=== PATIENT | female | born 1945 | race Caucasian/White ===

== ENCOUNTER 2017-03-11 12:48 | Outpatient (RCR) | payer MEDICARE ==
--- NOTE | 2017-02-12 13:27 | PT/OT/ST INITIAL EVALUATION ---
Department of Health and Human Services Form Approved [facility] Care Financing Administration OMB No. [id number] PLAN OF CARE/ASSESSMENT FOR OUTPATIENT REHABILITATION (Complete for Initial Claims Only) 1. PATIENT'S NAME Natalee Borrego 2. ACC # [id number] 3. [facility] [id number] 4. PROVIDER NO. [id number] 5. TYPE: PT 6. PRIOR HOSPITALIZATION NA 7. PRIMARY DX Low back pain, sacroiliac joint dysfunction, right hip pain with osteoarthritis. 8. 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 9. ONSET DATE 4 years ago 10. REFERRAL DATE 02/07/2017 11. SOC. DATE 02/11/2017 12. TIME OF EVAL 11:58 a.m. to 12:54 p.m. 12. REFERRING PHYSICIAN María Tijerina PA-C with Marleny Benites MD 13. CHARGES/UNITS PT evaluation low complexity 11200 Therapeutic exercise 86619, 1 unit Manual therapy 86099, 1 unit 14. G CODES The Oswestry rates the patient as [id number] 52% limited and the goal is [id number] 0% limited in order to ambulate and perform household activity requiring rotation without deviation. 15. PRIOR LEVEL OF FUNCTION; PERTINENT HISTORY (Prior therapy results, reason for referral.) S: Prior to therapy the patient consented to today's evaluation and treatment. The patient is a 71-year-old female referred to physical therapy by María Tijerina PA-C and Dr. Benites to address functional limitations secondary to low back pain, sacroiliac joint dysfunction, and right hip pain due to osteoarthritis. Mechanism of injury: The patient reports that she feels like the pain starts in her right hip and then progressively gets worse and moves into her low back and right groin. The patient reports there was no specific injury and has been this way for 4 years. Primary Complaint: Right hip pain into her groin and posterior and lateral hip, as well as her low back. Occupational and social history: The patient is retired. Functional performance/Prior level of function: The patient has difficulty with vacuuming and rotational activities such as getting in and out of the car. The patient has difficulty with walking long distances. The patient has had occasions in the past where her right hip locks up on her just walking to her car and she cannot move it; however, this has not happened recently. Pain level: The patient rates the current pain level as a 4 in the right anterior hip, 9/10 in the low back and lateral hip 7/10. The patient states the pain begins in her hip and then spreads out to include her right groin, right posterior and lateral hip and low back. The patient describes the pain as getting worse as the day goes on and describes it as a pain. Obstacles to delivery of care: None noted. Aggravating factors: Include twisting and leaning down, vacuuming and getting in and out of her car. Relieving factors: Include rest with a heating pad, but only gives her temporary relief and the pain returns as soon as she moves. Diagnostic testing: X-rays last week showed mild osteoarthritic changes in her hip. Past medical history: Includes having a history of ulcers years ago, so she is not able to take regular antiinflammatories, depression which is controlled, contact dermatitis which is controlled and restless leg syndrome which she describes as being bad and takes an anxiety medication for this. Past surgical history: Includes breast implants, hysterectomy, bladder suspension, and ganglion cyst removal. Current medications: Include antihistamines, tizanidine HCl, sertraline, clonazepam, and Delestrogen. Leisure activities: Include TV. Activity level: Listed as little because of the pain. Personal health rating: Listed as good. Patient's Goal: The patient's goal for physical therapy including finding the problem and correcting it, as well as being able to walk further. 16. INITIAL ASSESSMENT/SAFETY PRECAUTIONS/MEDICAL COMPLICATIONS (Level of function at start of care. Be specific, use objective measures, list problems.) O: APPEARANCE, OBSERVATION AND GAIT: The patient reports that she is not having any bowel or bladder issues and no saddle anesthesia. The patient reports no numbness or tingling into either lower extremity. The patient reports as the day goes on, she walks with bent-over posture, but she does not start the day that way and is able to stand upright at the beginning of the day. The patient reports that she took samples of Duexis after going to the doctor's office. She states this completely relieved her right hip pain, and then she tapered off it before coming into the physical therapy and the pain returned. The patient was instructed to call the doctor's office to let them know this information so they could decide whether they wanted to place her on a schedule regimen on the antiinflammatory for a certain amount of time and for her to find out if they wanted her to do this and for how long. PALPATION: The patient was tender to palpate on the right anterior portion of her hip and the right posterior hip with mild tenderness in the right lateral hip. SPECIAL TESTS: None RANGE OF MOTION/FLEXIBILITY: In a standing position, the lumbar spine flexion 85% with some pulling on the right side. Extension 85%, side bending bilateral 100%, rotation bilateral 75%. In a standing position hip active range of motion extension within functional limits, abduction limited on the right as compared to the left. Passive range of motion in supine of the hip all within normal limits of flexion, abduction, internal rotation, and external rotation on the left hip. Limited by muscle guarding on the right. When moving the left hip into flexion, abduction, internal rotation and external rotation she felt a pulling on the anterior right hip. In a side-lying position, passive motion into flexion had good range of motion. Extension the patient was limited and only able to get hips into a neutral position. Side bending and rotation mildly stiff bilaterally. STRENGTH: Manual muscle testing of the hips extension bilateral 4-/5, abduction bilateral 4-/5, flexion bilateral 3+/5. TODAY'S TREATMENT: Treatment to include the initial PT evaluation followed therapeutic exercise and manual therapy to correct a right posterior versus left anterior rotation of the pelvis, as well as a left elevated sacrum in which overpressure of the left sacrum corrected all alignment issues. 17. INITIAL POC: (Specify procedures, modalities, short and continuous improvement coordinator goals) A: This patient presents with the diagnosis of low back pain and sacroiliac joint dysfunction and right hip pain due to OA with functional limitations of right hip stiffness, difficulty walking, and leg length discrepancy due to sacroiliac dysfunction. The patient would benefit from physical therapy in order to improve muscular balance bilaterally and to help maintain pelvic symmetry alignment in order to decrease irritation to the right hip and to improve active range of motion of both hips and lumbar spine, improve motor control to support the low back and hips, in order to return to bending forward, ambulating for exercise and household duties that require rotation and getting in and out of her car without pain and proper mechanics. PROGNOSIS: The patient has a fair prognosis for increased overall functional capacity with regular therapy attendance and compliance with prescribed home exercise program. CONTRAINDICATIONS, PRECAUTIONS AND OBSTACLES TO DELIVERY OF CARE: No significant contraindications, precautions, or obstacles are noted at this time. INFORMED CONSENT: The prognosis and goals were discussed with this patient, as well as the expected outcomes and possible risks. The patient agreed to undergo PT evaluation and further treatment. SHORT TERM GOALS: 1. The patient is to have a decrease in pain of the right hip and low back to less than or equal to 1/10 in 6 weeks in order to ambulate without deviation. 2. The patient is to have an increase in manual muscle testing of the right hip to 4+/5 in 6 weeks to keep the pelvis symmetrical in order to ambulate without deviation to decrease pain of the right hip. 3. The patient is to have an increase in active range of motion of the lumbar spine passively into extension to be able to get past neutral as well as increasing right hip abduction active range of motion, to be equal to the left in 6 weeks so that she is able to get in and out of the car and perform household activities requiring rotation without deviation. 4. The patient is to be independent with progressive home exercise program. P: Plan to treat this patient 3 times a week for 6 weeks. Treatment to include modalities for pain and inflammation, manual therapy interventions, therapeutic exercise, active and passive range of motion, gait training, balance training, neural reeducation, and patient education and prescription of progressive home exercise program as tolerable. 18. FREQUENCY 3 times per week 19. DURATION 6 weeks 20. FUNCTIONAL LEVEL (End of claim period) 21. PHYSICIAN SIGNATURE ? ON FILE OR ENTER HERE: 22. DATE: I certify the need for these services furnished under this plan of care and if for partial hospitalization. 23. CERTIFICATION FROM THROUGH FORM [id number]
[~2017-03-11 12:48] MED LIST: ALPR0.5T PO; CEPH-507 PO; CLON0.5T3 PO; DPH25C PO; ESTR10VI2 IM; MUSCLE RELAXER; OXYC5CAP4 PO; SERT100T PO; TIZA4CAP6 PO
== END 2017-03-18 10:31 | disposition home or self-care (01) ==
LOC: PT 12:48
PROVIDERS: ATTEND Physician Assistant
DX: M54.5 Low back pain (principal); M25.551 Pain in right hip; M16.11 Unilateral primary osteoarthritis, right hip; R26.2 Difficulty in walking, not elsewhere classified; M46.1 Sacroiliitis, not elsewhere classified
CPT/HCPCS: 97110; 97140; 97161; G8978; G8979